=== PATIENT | female | born 1930 | race Two or more races ===

== ENCOUNTER 2016-09-19 11:25 | Outpatient (CLI) | payer MEDICARE ==
[2016-09-19 12:17] LABS: INR 1.13 (0.87-1.13); PROTHROMBIN TIME 12.2 SECS (9.5-12.7)
== END 2016-09-19 23:59 | disposition home or self-care (01) ==
LOC: LAB 11:25
DX: I48.91 Unspecified atrial fibrillation (principal); Z79.01 Long term (current) use of anticoagulants
CPT/HCPCS: 36415; 85610-TC

== ENCOUNTER 2016-10-17 11:28 | Outpatient (CLI) | payer MEDICARE ==
[2016-10-17 13:15] LABS: INR 1.16 (0.87-1.13); PROTHROMBIN TIME 12.5 SECS (9.5-12.7)
== END 2016-10-17 23:59 | disposition home or self-care (01) ==
LOC: LAB 11:28
DX: Z09 Encounter for follow-up examination after completed treatment for conditions other than malignant neoplasm (principal); I48.91 Unspecified atrial fibrillation
CPT/HCPCS: 36415; 85610-TC

== ENCOUNTER 2016-10-24 13:47 | Outpatient (CLI) | payer MEDICARE ==
[2016-10-24 14:32] LABS: INR 1.43 (0.87-1.13); PROTHROMBIN TIME 15.6 SECS (9.5-12.7)
== END 2016-10-24 23:59 | disposition home or self-care (01) ==
LOC: LAB 13:47
DX: Z09 Encounter for follow-up examination after completed treatment for conditions other than malignant neoplasm (principal); I48.91 Unspecified atrial fibrillation
CPT/HCPCS: 36415; 85610-TC

== ENCOUNTER 2016-10-29 11:11 | Outpatient (CLI) | payer MEDICARE ==
[2016-10-29 12:03] LABS: INR 2.36 (0.87-1.13); PROTHROMBIN TIME 26.7 SECS (9.5-12.7)
== END 2016-10-29 23:59 | disposition home or self-care (01) ==
LOC: LAB 11:11
DX: Z09 Encounter for follow-up examination after completed treatment for conditions other than malignant neoplasm (principal); I48.91 Unspecified atrial fibrillation
CPT/HCPCS: 36415; 85610-TC

== ENCOUNTER 2016-11-23 10:12 | Outpatient (CLI) | payer MEDICARE ==
[2016-11-23 10:50] LABS: INR 2.37 (0.87-1.13); PROTHROMBIN TIME 26.8 SECS (9.5-12.7)
== END 2016-11-23 23:59 | disposition home or self-care (01) ==
LOC: LAB 10:12
DX: Z09 Encounter for follow-up examination after completed treatment for conditions other than malignant neoplasm (principal); I48.91 Unspecified atrial fibrillation
CPT/HCPCS: 36415; 85610-TC

== ENCOUNTER 2016-12-07 11:42 | Outpatient (CLI) | payer MEDICARE ==
[2016-12-07 12:27] LABS: INR 3.56 (0.87-1.13); PROTHROMBIN TIME 41.3 SECS (9.5-12.7)
== END 2016-12-07 23:59 | disposition home or self-care (01) ==
LOC: LAB 11:42
DX: Z09 Encounter for follow-up examination after completed treatment for conditions other than malignant neoplasm (principal); I48.91 Unspecified atrial fibrillation
CPT/HCPCS: 36415; 85610-TC

== ENCOUNTER 2016-12-17 13:13 | Outpatient (CLI) | payer MEDICARE ==
[2016-12-17 13:48] LABS: INR 1.05 (0.87-1.13); PROTHROMBIN TIME 10.9 SECS (9.5-12.7)
== END 2016-12-17 23:59 | disposition home or self-care (01) ==
LOC: LAB 13:13
DX: Z09 Encounter for follow-up examination after completed treatment for conditions other than malignant neoplasm (principal); I48.91 Unspecified atrial fibrillation
CPT/HCPCS: 36415; 85610-TC

== ENCOUNTER 2016-12-21 09:21 | Outpatient (CLI) | payer MEDICARE ==
[2016-12-21 10:24] LABS: INR 1.09 (0.87-1.13); PROTHROMBIN TIME 11.3 SECS (9.5-12.7)
== END 2016-12-21 23:59 | disposition home or self-care (01) ==
LOC: LAB 09:21
DX: Z09 Encounter for follow-up examination after completed treatment for conditions other than malignant neoplasm (principal); I48.91 Unspecified atrial fibrillation
CPT/HCPCS: 36415; 85610-TC

== ENCOUNTER 2016-12-24 11:19 | Outpatient (CLI) | payer MEDICARE ==
[2016-12-24 12:39] LABS: INR 1.61 (0.87-1.13); PROTHROMBIN TIME 16.8 SECS (9.5-12.7)
== END 2016-12-24 23:59 | disposition home or self-care (01) ==
LOC: LAB 11:19
DX: Z09 Encounter for follow-up examination after completed treatment for conditions other than malignant neoplasm (principal); I48.91 Unspecified atrial fibrillation
CPT/HCPCS: 36415; 85610-TC

== ENCOUNTER 2016-12-28 10:17 | Outpatient (CLI) | payer MEDICARE ==
[2016-12-28 11:09] LABS: INR 1.87 (0.87-1.13); PROTHROMBIN TIME 19.6 SECS (9.5-12.7)
== END 2016-12-28 23:59 | disposition home or self-care (01) ==
LOC: LAB 10:17
DX: Z09 Encounter for follow-up examination after completed treatment for conditions other than malignant neoplasm (principal); I48.91 Unspecified atrial fibrillation
CPT/HCPCS: 36415; 85610-TC

== ENCOUNTER 2017-01-07 11:14 | Outpatient (CLI) | payer MEDICARE ==
[2017-01-07 12:26] LABS: INR 2.95 (0.87-1.13)
== END 2017-01-07 23:59 | disposition home or self-care (01) ==
LOC: LAB 11:14
DX: Z09 Encounter for follow-up examination after completed treatment for conditions other than malignant neoplasm (principal); I48.91 Unspecified atrial fibrillation
CPT/HCPCS: 36415; 85610-TC

== ENCOUNTER 2017-01-14 10:13 | Outpatient (CLI) | payer MEDICARE ==
[2017-01-14 11:03] LABS: INR 3.12 (0.87-1.13); PROTHROMBIN TIME 32.8 SECS (9.5-12.7)
== END 2017-01-14 23:59 | disposition home or self-care (01) ==
LOC: LAB 10:13
DX: Z09 Encounter for follow-up examination after completed treatment for conditions other than malignant neoplasm (principal); I48.91 Unspecified atrial fibrillation
CPT/HCPCS: 36415; 85610-TC

== ENCOUNTER 2017-01-23 10:20 | Outpatient (CLI) | payer MEDICARE ==
[2017-01-23 11:19] LABS: INR 3.28 (0.87-1.13); PROTHROMBIN TIME 34.5 SECS (9.5-12.7)
== END 2017-01-23 23:59 | disposition home or self-care (01) ==
LOC: LAB 10:20
DX: Z09 Encounter for follow-up examination after completed treatment for conditions other than malignant neoplasm (principal); I48.91 Unspecified atrial fibrillation
CPT/HCPCS: 36415; 85610-TC

== ENCOUNTER 2017-01-30 10:15 | Outpatient (CLI) | payer MEDICARE ==
[2017-01-30 10:53] LABS: INR 3.11 (0.87-1.13); PROTHROMBIN TIME 32.7 SECS (9.5-12.7)
== END 2017-01-30 23:59 ==
LOC: LAB 10:15
DX: Z09 Encounter for follow-up examination after completed treatment for conditions other than malignant neoplasm (principal); I48.91 Unspecified atrial fibrillation
CPT/HCPCS: 36415; 85610-TC

== ENCOUNTER 2017-02-11 13:13 | Outpatient (CLI) | payer MEDICARE ==
[2017-02-11 13:51] LABS: INR 2.71 (0.87-1.13); PROTHROMBIN TIME 28.5 SECS (9.5-12.7)
== END 2017-02-11 23:59 | disposition home or self-care (01) ==
LOC: LAB 13:13
DX: Z09 Encounter for follow-up examination after completed treatment for conditions other than malignant neoplasm (principal); I48.91 Unspecified atrial fibrillation
CPT/HCPCS: 36415; 85610-TC

== ENCOUNTER 2017-02-27 11:12 | Outpatient (CLI) | payer MEDICARE ==
[2017-02-27 12:02] LABS: INR 2.12 (0.87-1.13); PROTHROMBIN TIME 22.2 SECS (9.5-12.7)
== END 2017-02-27 23:59 | disposition home or self-care (01) ==
LOC: LAB 11:12
DX: Z09 Encounter for follow-up examination after completed treatment for conditions other than malignant neoplasm (principal); I48.91 Unspecified atrial fibrillation
CPT/HCPCS: 36415; 85610-TC

== ENCOUNTER 2017-03-13 11:21 | Outpatient (CLI) | payer MEDICARE ==
[2017-03-13 12:37] LABS: INR 1.8 (0.87-1.13); PROTHROMBIN TIME 18.8 SECS (9.5-12.7)
== END 2017-03-13 23:59 | disposition home or self-care (01) ==
LOC: LAB 11:21
DX: Z09 Encounter for follow-up examination after completed treatment for conditions other than malignant neoplasm (principal); I48.91 Unspecified atrial fibrillation
CPT/HCPCS: 36415; 85610-TC

== ENCOUNTER 2017-04-03 11:13 | Outpatient (CLI) | payer MEDICARE ==
[2017-04-03 12:21] LABS: INR 2.9 (0.87-1.13)
== END 2017-04-03 23:59 | disposition home or self-care (01) ==
LOC: LAB 11:13
DX: Z09 Encounter for follow-up examination after completed treatment for conditions other than malignant neoplasm (principal); I48.2 Chronic atrial fibrillation
CPT/HCPCS: 36415; 85610-TC

== ENCOUNTER → 2017-04-29 | Outpatient (CLI) | payer MEDICARE ==
[2017-04-29 11:56] LABS: INR 2.26 (0.87-1.13)
== END | disposition home or self-care (01) ==
LOC: LAB 11:16
DX: Z09 Encounter for follow-up examination after completed treatment for conditions other than malignant neoplasm (principal); I48.2 Chronic atrial fibrillation
CPT/HCPCS: 36415; 85610-TC

== ENCOUNTER 2017-05-22 13:12 | Outpatient (CLI) | payer MEDICARE ==
[2017-05-22 14:01] LABS: INR 3.41 (0.85-1.15)
== END 2017-05-22 23:59 | disposition home or self-care (01) ==
LOC: LAB 13:12
DX: Z09 Encounter for follow-up examination after completed treatment for conditions other than malignant neoplasm (principal); I48.2 Chronic atrial fibrillation
CPT/HCPCS: 36415; 85610-TC

== ENCOUNTER 2017-05-31 13:43 | Outpatient (CLI) | payer MEDICARE ==
[2017-05-31 15:04] LABS: INR 4.75 (0.87-1.13)
== END 2017-05-31 23:59 | disposition home or self-care (01) ==
LOC: LAB 13:43
DX: Z09 Encounter for follow-up examination after completed treatment for conditions other than malignant neoplasm (principal); I48.2 Chronic atrial fibrillation
CPT/HCPCS: 36415; 85610-TC

== ENCOUNTER 2017-06-05 13:04 | Outpatient (CLI) | payer MEDICARE ==
[2017-06-05 14:03] LABS: INR 3.66 (0.87-1.13)
== END 2017-06-05 23:59 | disposition home or self-care (01) ==
LOC: LAB 13:04
DX: Z09 Encounter for follow-up examination after completed treatment for conditions other than malignant neoplasm (principal); I48.2 Chronic atrial fibrillation
CPT/HCPCS: 36415; 85610-TC

== ENCOUNTER 2017-06-21 13:16 | Outpatient (CLI) | payer MEDICARE ==
[2017-06-21 14:27] LABS: INR 2.14 (0.87-1.13)
== END 2017-06-21 23:59 | disposition home or self-care (01) ==
LOC: LAB 13:16
DX: Z09 Encounter for follow-up examination after completed treatment for conditions other than malignant neoplasm (principal); I48.2 Chronic atrial fibrillation
CPT/HCPCS: 36415; 85610-TC

== ENCOUNTER 2017-07-12 13:12 | Outpatient (CLI) | payer MEDICARE ==
[2017-07-12 15:28] LABS: INR 4.54 (0.87-1.13)
== END 2017-07-12 23:59 | disposition home or self-care (01) ==
LOC: LAB 13:12
DX: Z09 Encounter for follow-up examination after completed treatment for conditions other than malignant neoplasm (principal); I48.2 Chronic atrial fibrillation
CPT/HCPCS: 36415; 85610-TC

== ENCOUNTER 2017-07-15 11:19 | Outpatient (CLI) | payer MEDICARE ==
[2017-07-15 12:41] LABS: INR 1.78 (0.87-1.13)
== END 2017-07-15 23:59 | disposition home or self-care (01) ==
LOC: LAB 11:19
DX: Z09 Encounter for follow-up examination after completed treatment for conditions other than malignant neoplasm (principal); I48.2 Chronic atrial fibrillation
CPT/HCPCS: 36415; 85610-TC

== ENCOUNTER 2017-07-22 11:10 | Outpatient (CLI) | payer MEDICARE ==
[2017-07-22 11:37] LABS: INR 1.16 (0.85-1.15)
== END 2017-07-22 23:59 | disposition home or self-care (01) ==
LOC: LAB 11:10
DX: Z09 Encounter for follow-up examination after completed treatment for conditions other than malignant neoplasm (principal); I48.2 Chronic atrial fibrillation
CPT/HCPCS: 36415; 85610-TC

== ENCOUNTER 2017-07-31 13:22 | Outpatient (CLI) | payer MEDICARE ==
[2017-07-31 14:40] LABS: BASOPHILS % (AUTO) 0.6 % (0.0-2.0); HEMATOCRIT 32 % (33-45); HEMOGLOBIN 10.4 g/dL (11.5-14.8); LYMPHOCYTES # (AUTO) 1.2 /CMM (0.8-4.8); LYMPHOCYTES % (AUTO) 15.8 % (20.0-44.0); MEAN CORPUSCULAR HGB CONC 32 g/dl (31.0-36.0); MEAN CORPUSCULAR VOLUME 80 fL (82-100); MONOCYTES # (AUTO) 0.5 /CMM (0.1-1.30); MONOCYTES % (AUTO) 6.4 % (2.0-12.0); NEUTROPHILS # (AUTO) 5.9 /CMM (1.8-8.9); NEUTROPHILS % (AUTO) 75.2 % (43.0-81.0); PLATELET COUNT (AUTO) 185 /CMM (150-450); RDW COEFFICIENT OF VARIATION 17.3 (11.5-15.0); WHITE BLOOD COUNT (AUTO) 7.9 K/uL (4.3-11.0)
[2017-07-31 14:58] LABS: INR 1.09 (0.87-1.13)
[2017-07-31 15:07] LABS: TOTAL IRON BINDING CAPACITY 362 ug/dl (250-450)
[2017-07-31 15:21] LABS: FERRITIN 23 ng/mL (8-388); IRON, SERUM 31 ug/dl (50-175)
== END 2017-07-31 23:59 | disposition home or self-care (01) ==
LOC: LAB 13:22
DX: Z09 Encounter for follow-up examination after completed treatment for conditions other than malignant neoplasm (principal); D64.9 Anemia, unspecified; E55.9 Vitamin D deficiency, unspecified; I48.2 Chronic atrial fibrillation
CPT/HCPCS: 36415; 82306; 82728-TC; 82746; 83540-TC; 83550-TC; 85025-TC; 85610-TC

== ENCOUNTER 2017-08-07 13:11 | Outpatient (CLI) | payer MEDICARE ==
[2017-08-07 13:58] LABS: INR 1.42 (0.87-1.13)
== END 2017-08-07 23:59 | disposition home or self-care (01) ==
LOC: LAB 13:11
DX: Z09 Encounter for follow-up examination after completed treatment for conditions other than malignant neoplasm (principal); I48.2 Chronic atrial fibrillation
CPT/HCPCS: 36415; 85610-TC

== ENCOUNTER 2017-08-19 13:13 | Outpatient (CLI) | payer MEDICARE ==
[2017-08-19 13:39] LABS: INR 1.24 (0.85-1.15)
== END 2017-08-19 23:59 | disposition home or self-care (01) ==
LOC: LAB 13:13
DX: Z09 Encounter for follow-up examination after completed treatment for conditions other than malignant neoplasm (principal); I48.2 Chronic atrial fibrillation
CPT/HCPCS: 36415; 85610-TC

== ENCOUNTER 2017-09-13 11:10 | Outpatient (CLI) | payer MEDICARE ==
[2017-09-13 12:10] LABS: INR 1.82 (0.87-1.13)
== END 2017-09-13 23:59 | disposition home or self-care (01) ==
LOC: LAB 11:10
DX: Z09 Encounter for follow-up examination after completed treatment for conditions other than malignant neoplasm (principal); I48.2 Chronic atrial fibrillation
CPT/HCPCS: 36415; 85610-TC

== ENCOUNTER 2018-07-26 11:58 | Emergency (ER) | payer MEDICARE ==
[~2018-07-26] VITALS: Ht 152.4 cm; Wt 54.4 kg
[2018-07-26 12:24] VITALS: BP 136/77
--- NOTE | 2018-07-26 13:26 | NUR ---
Note rita in ED - 07/26/18 at 1329 by BREANNA For discharge-Verbalized understanding. Knee brace applied by Yoni. Home ambulatory Stable
--- NOTE | 2018-07-26 13:29 | NUR ---
For discharge-Verbalized understanding. Karan Wrap applied by Yoni. Home ambulatory Stable
== END 2018-07-26 13:29 | disposition home or self-care (01) ==
LOC: ER 11:58
DX: M25.561 Pain in right knee (principal); W18.39XA Other fall on same level, initial encounter; Y93.01 Activity, walking, marching and hiking; Y92.89 Other specified places as the place of occurrence of the external cause; Y99.8 Other external cause status
CPT/HCPCS: 73564-TC

== ENCOUNTER 2018-08-29 11:41 | Outpatient (CLI) | payer MEDICARE | END 2018-08-29 23:59 | disposition home or self-care (01) | LOC: LAB 11:41 | DX: I48.2 Chronic atrial fibrillation (principal); Z95.2 Presence of prosthetic heart valve; Z79.01 Long term (current) use of anticoagulants | CPT/HCPCS: 36415; 85610-TC ==

== ENCOUNTER 2018-09-08 10:17 | Outpatient (CLI) | payer MEDICARE | END 2018-09-08 23:59 | disposition home or self-care (01) | LOC: LAB 10:17 | DX: I48.2 Chronic atrial fibrillation (principal); R79.0 Abnormal level of blood mineral; Z95.2 Presence of prosthetic heart valve | CPT/HCPCS: 36415; 85610-TC ==

== ENCOUNTER 2018-09-15 10:21 | Outpatient (CLI) | payer MEDICARE | END 2018-09-15 23:59 | disposition home or self-care (01) | LOC: LAB 10:21 | DX: I48.2 Chronic atrial fibrillation (principal); Z79.01 Long term (current) use of anticoagulants; Z95.2 Presence of prosthetic heart valve | CPT/HCPCS: 36415; 85610-TC ==

== ENCOUNTER 2018-09-22 08:19 | Outpatient (CLI) | payer MEDICARE | END 2018-09-22 23:59 | disposition home or self-care (01) | LOC: LAB 08:19 | DX: I48.2 Chronic atrial fibrillation (principal); Z79.01 Long term (current) use of anticoagulants; Z95.2 Presence of prosthetic heart valve | CPT/HCPCS: 36415; 85610-TC ==

== ENCOUNTER 2018-10-06 13:09 | Outpatient (CLI) | payer MEDICARE | END 2018-10-06 23:59 | disposition home or self-care (01) | LOC: LAB 13:09 | DX: I48.2 Chronic atrial fibrillation (principal); Z79.01 Long term (current) use of anticoagulants; Z95.2 Presence of prosthetic heart valve | CPT/HCPCS: 36415; 85610-TC ==

== ENCOUNTER 2018-10-21 10:03 | Outpatient (CLI) | payer MEDICARE | END 2018-10-21 23:59 | disposition home or self-care (01) | LOC: LAB 10:03 | DX: I48.2 Chronic atrial fibrillation (principal); Z95.2 Presence of prosthetic heart valve; Z79.01 Long term (current) use of anticoagulants | CPT/HCPCS: 36415; 85610-TC ==

== ENCOUNTER 2018-11-14 11:20 | Outpatient (CLI) | payer MEDICARE | END 2018-11-14 23:59 | disposition home or self-care (01) | LOC: LAB 11:20 | DX: I48.2 Chronic atrial fibrillation (principal); Z79.01 Long term (current) use of anticoagulants; Z95.2 Presence of prosthetic heart valve | CPT/HCPCS: 36415; 85610-TC ==

== ENCOUNTER → 2019-02-20 | Outpatient (CLI) | payer MEDICARE | END | disposition home or self-care (01) | LOC: LAB 14:35 | DX: R79.1 Abnormal coagulation profile (principal); I48.20 Chronic atrial fibrillation, unspecified; Z95.2 Presence of prosthetic heart valve | CPT/HCPCS: 36415; 85610-TC ==

== ENCOUNTER 2019-05-01 10:29 | Outpatient (CLI) | payer MEDICARE | END 2019-05-01 23:59 | disposition home or self-care (01) | LOC: LAB 10:29 | DX: I48.20 Chronic atrial fibrillation, unspecified (principal); R79.1 Abnormal coagulation profile; Z95.2 Presence of prosthetic heart valve | CPT/HCPCS: 36415; 85610-TC; 85730-TC ==